=== PATIENT | female | born 1975 | race Hispanic/Latino ===

== ENCOUNTER 2017-07-20 20:05 | Emergency (ER) | payer BC, OTHER ==
[2017-07-20] MEDS ORDERED: IBUPROFEN 400 MG TABLET ONE (20:19)
[2017-07-20 20:37] LABS: APPEARANCE,URINE Clear (CLEAR); BILIRUBIN,URINE Negative (NEGATIVE); COLOR,URINE Yellow (YELLOW); GLUCOSE, URINE (UA) Negative (NEGATIVE); KETONES,URINE Negative (NEGATIVE); LEUKOCYTE ESTERASE ,URINE Negative (NEGATIVE); NITRATE,URINE Negative (NEGATIVE); OCCULT BLOOD,URINE Negative (NEGATIVE); PH,URINE 8.5 (5.0-8.0); PROTEIN,URINE Negative (NEGATIVE)
[2017-07-20 20:40] LABS: HCG,QUAL RESULT NEGATIVE (NEGATIVE)
[2017-07-20 20:50] LABS: RAPID GROUP A STREP NEGATIVE (NEGATIVE)
== END 2017-07-20 21:06 | disposition home or self-care (01) ==
LOC: EDH 20:05
DX: J09.X2 Influenza due to identified novel influenza A virus with other respiratory manifestations (principal)
CPT/HCPCS: 81003; 81025; 87804; 87880

== ENCOUNTER 2019-07-01 08:55 | Emergency (ER) | payer OTHER | END 2019-07-01 09:50 | disposition home or self-care (01) | LOC: EDH 08:55 | DX: R50.9 Fever, unspecified (principal); M79.10 Myalgia, unspecified site; I10 Essential (primary) hypertension ==

== ENCOUNTER → 2021-04-15 | Emergency (ER) | payer BC, OTHER ==
[~2021-04-15] VITALS: Ht 162.6 cm; Wt 104.3 kg
[~2021-04-15] MED LIST: 0.9%NACL 1000ML 1,000 ML IV ONE; DiphenhydrAMINE HCL 50 MG/ML VIAL IV ONE; KETOROLAC 30MG VIAL (30MG/ML) IV ONE; PROCHLORPERAZINE 10MG/2ML INJ IV ONE
[2021-04-15 20:15] VITALS: BP 120/61
== END | disposition home or self-care (01) ==
LOC: EDH 18:41
DX: G43.909 Migraine, unspecified, not intractable, without status migrainosus (principal); E86.0 Dehydration; R11.10 Vomiting, unspecified; E11.9 Type 2 diabetes mellitus without complications; E78.00 Pure hypercholesterolemia, unspecified; I10 Essential (primary) hypertension; Z79.1 Long term (current) use of non-steroidal anti-inflammatories (NSAID)
CPT/HCPCS: 96361; 96374; 96375; 99284; J0780; J1200; J1885; J7030

== ENCOUNTER 2022-06-09 22:55 | Emergency (ER) | payer BC ==
[~2022-06-09] VITALS: Ht 162.6 cm; Wt 112.2 kg
[2022-06-09 22:59] VITALS: BP 137/80
[2022-06-09] MEDS ORDERED: KETOROLAC 30MG VIAL (30MG/ML) IM ONE (23:30)
== END 2022-06-09 23:33 | disposition home or self-care (01) ==
LOC: EDH 22:55
DX: S02.5XXA Fracture of tooth (traumatic), initial encounter for closed fracture (principal); E11.9 Type 2 diabetes mellitus without complications; E78.00 Pure hypercholesterolemia, unspecified; I10 Essential (primary) hypertension; X58.XXXA Exposure to other specified factors, initial encounter; Y93.89 Activity, other specified; Y92.89 Other specified places as the place of occurrence of the external cause; Y99.8 Other external cause status
CPT/HCPCS: 99284; 96372; J1885

== ENCOUNTER 2022-08-22 15:58 | Emergency (ER) | payer BC ==
[~2022-08-22] VITALS: Ht 162.6 cm; Wt 113.9 kg
[2022-08-22] MEDS ORDERED: KETOROLAC 60 MG VIAL (30MG/ML) IM ONE (16:30)
[2022-08-22] MEDS ORDERED: ORPHENADRINE CITRATE 30 MG/ML ML IM ONE (16:30)
[2022-08-22] MEDS ORDERED: CYCL10TA16 PO (16:33)
[2022-08-22] MEDS ORDERED: OXYC-38 PO (16:33)
[2022-08-22] MEDS ORDERED: IBUP-2077 PO (16:33)
[2022-08-22 17:31] VITALS: BP 151/83
[2022-08-24] MEDS ORDERED: OXYC-38 PO (12:16)
== END 2022-08-22 17:33 | disposition home or self-care (01) ==
LOC: EDH 15:58
DX: M54.42 Lumbago with sciatica, left side (principal); E11.9 Type 2 diabetes mellitus without complications; E78.00 Pure hypercholesterolemia, unspecified; I10 Essential (primary) hypertension; Z79.899 Other long term (current) drug therapy
CPT/HCPCS: 99284; 96372 ×2; J1885

== ENCOUNTER 2022-09-21 10:54 | Emergency (ER) | payer BC ==
[~2022-09-21] VITALS: Ht 162.6 cm; Wt 115.2 kg
[~2022-09-21 10:54] MED LIST changes: -0.9%NACL 1000ML 1,000 ML IV ONE; +CYCL10TA16 PO; -DiphenhydrAMINE HCL 50 MG/ML VIAL IV ONE; +IBUP-2077 PO; -KETOROLAC 30MG VIAL (30MG/ML) IV ONE; +OXYC-38 PO; -PROCHLORPERAZINE 10MG/2ML INJ IV ONE
[2022-09-21 11:33] LABS: APPEARANCE,URINE TURBID (CLEAR); BILIRUBIN,URINE NEGATIVE (NEGATIVE); COLOR,URINE LIGHT-ORANGE (YELLOW); GLUCOSE, URINE (UA) NEGATIVE (NEGATIVE); KETONES,URINE NEGATIVE (NEGATIVE); LEUKOCYTE ESTERASE ,URINE 500 Leu/uL (NEGATIVE); NITRATE,URINE NEGATIVE (NEGATIVE); OCCULT BLOOD,URINE LARGE (NEGATIVE); PH,URINE 7.5 (5.0-8.0); PROTEIN,URINE 70 mg/dL (NEGATIVE); UROBILINOGEN,URINE 0.2 mg/dL (0.2-1.0)
[2022-09-21 11:34] LABS: HCG,QUALITATIVE URINE NEGATIVE (NEGATIVE)
[2022-09-21 11:45] LABS: ALBUMIN 3.2 g/dL (3.5-5.0); CREATININE 0.6 mg/dL (0.5-1.5); POTASSIUM 4.2 mmol/L (3.5-5.1); TOTAL PROTEIN, SERUM 6.7 g/dL (6.0-8.3)
[2022-09-21 11:49] LABS: BACTERIA,URINE FEW /HPF (None Seen); MUCUS,URINE RARE LPF (None Seen); RBC,URINE 51-100 /HPF (0-1); SQUAMOUS EPITHELIAL CELL,UR FEW /HPF (0-2); WBC,URINE TNTC /HPF (0-1); YEAST,URINE BUDDING MOD /HPF (None Seen)
[2022-09-21 11:55] LABS: BASOPHILS % (AUTO) 0.6 % (0.0-5.0); EOSINOPHILS % (AUTO) 3.7 % (0.0-8.0); HEMATOCRIT 41.7 % (36-48); LYMPHOCYTES % (AUTO) 15.2 % (21.0-51.0); MEAN CORPUSCULAR HEMOGLOBIN 32.1 pg (27.0-33.0); MEAN CORPUSCULAR HGB CONC 34.3 g/dL (32.0-36.0); MEAN CORPUSCULAR VOLUME 93.5 fL (79-99); MONOCYTES % (AUTO) 5.3 % (3.0-13.0); NEUTROPHILS % (AUTO) 74.8 % (40.0-77.0); PLATELET COUNT (AUTO) 147 K/uL (130-400); RED BLOOD CELL COUNT(AUTO) 4.46 MIL/uL (4.00-5.50); RED CELL DISTRIBUTION WIDTH 12.4 % (11.0-15.5); WHITE BLOOD COUNT (AUTO) 11.6 K/uL (4.8-10.8)
[2022-09-21] MEDS ORDERED: SULF1TAB42 PO (13:28)
[2022-09-21] MEDS ORDERED: CEFTRIAXONE 1G VIAL IM ONE (13:30)
[2022-09-21 15:02] VITALS: BP 138/80
[2022-09-21] MEDS ORDERED: LIDOCAINE HCL-MPF 2% 5ML VIAL ONE (15:09)
== END 2022-09-21 15:06 | disposition home or self-care (01) ==
LOC: EDH 10:54
DX: N39.0 Urinary tract infection, site not specified (principal); I10 Essential (primary) hypertension; E78.00 Pure hypercholesterolemia, unspecified; E11.9 Type 2 diabetes mellitus without complications
CPT/HCPCS: 99283; 80053; 85025; 87077; 87088; 87186; 81001; 81025; 36415; 96372; J0696; J3490

== ENCOUNTER 2022-12-21 12:46 | Emergency (ER) | payer BC ==
[~2022-12-21] VITALS: Ht 162.6 cm; Wt 119.3 kg
[~2022-12-21 12:46] MED LIST changes: +SULF1TAB42 PO
[2022-12-21 13:37] LABS: BASOPHILS # (AUTO) 0.09 K/uL (0.00-0.20); EOSINOPHILS # (AUTO) 0.41 K/uL (0.00-0.70); EOSINOPHILS % (AUTO) 4.4 % (0.0-8.0); HEMATOCRIT 41.9 % (36-48); IMMATURE GRANULOCYTE ABSOLUTE 0.07 K/uL (0-1); LYMPHOCYTES # (AUTO) 2.6 K/uL (1.0-4.8); MEAN CORPUSCULAR HEMOGLOBIN 32.7 pg (27.0-33.0); MEAN CORPUSCULAR HGB CONC 34.6 g/dL (32.0-36.0); MEAN CORPUSCULAR VOLUME 94.4 fL (79-99); MONOCYTES # (AUTO) 0.4 K/uL (0.1-1.0); MONOCYTES % (AUTO) 4.2 % (3.0-13.0); NEUTROPHILS # (AUTO) 5.8 K/uL (1.8-7.7); NEUTROPHILS % (AUTO) 61.7 % (40.0-77.0); PLATELET COUNT (AUTO) 160 K/uL (130-400); RED BLOOD CELL COUNT(AUTO) 4.44 MIL/uL (4.00-5.50); RED CELL DISTRIBUTION WIDTH 12.9 % (11.0-15.5); WHITE BLOOD COUNT (AUTO) 9.4 K/uL (4.8-10.8)
[2022-12-21 13:41] LABS: APPEARANCE,URINE CLEAR (CLEAR); BILIRUBIN,URINE NEGATIVE (NEGATIVE); COLOR,URINE YELLOW (YELLOW); GLUCOSE, URINE (UA) 50 mg/dL (NEGATIVE); KETONES,URINE NEGATIVE (NEGATIVE); LEUKOCYTE ESTERASE ,URINE NEGATIVE Leu/uL (NEGATIVE); NITRATE,URINE NEGATIVE (NEGATIVE); OCCULT BLOOD,URINE NEGATIVE (NEGATIVE); PH,URINE 5.5 (5.0-8.0); PROTEIN,URINE NEGATIVE (NEGATIVE); UROBILINOGEN,URINE 0.2 mg/dL (0.2-1.0)
[2022-12-21 13:43] LABS: HCG,QUALITATIVE URINE NEGATIVE (NEGATIVE)
[2022-12-21 13:44] LABS: CREATININE 0.6 mg/dL (0.5-1.5); POTASSIUM 3.7 mmol/L (3.5-5.1)
[2022-12-21 13:45] LABS: ADD UA MICROSCOPIC YES
[2022-12-21 13:46] LABS: BACTERIA,URINE FEW /HPF (None Seen); MUCUS,URINE RARE LPF (None Seen); RBC,URINE 0-1 /HPF (0-1); SQUAMOUS EPITHELIAL CELL,UR FEW /HPF (0-2); WBC,URINE 0-1 /HPF (0-1)
[2022-12-21 14:00] LABS: ALBUMIN 2.6 g/dL (3.5-5.0); BILIRUBIN,TOTAL 0.3 mg/dL (0.2-1.0); MAGNESIUM 1.6 mg/dL (1.80-2.40); TOTAL PROTEIN, SERUM 5.9 g/dL (6.0-8.3)
[2022-12-21 18:45] VITALS: BP 142/82; PULSE 72; RESP 18; O2SAT 100
[2022-12-21] MEDS ORDERED: MAGNESIUM OXIDE 400 MG TABLET PO ONE (19:00)
== END 2022-12-21 18:46 | disposition home or self-care (01) ==
LOC: EDH 12:46
DX: R20.0 Anesthesia of skin (principal); E11.65 Type 2 diabetes mellitus with hyperglycemia; I10 Essential (primary) hypertension; E78.00 Pure hypercholesterolemia, unspecified; Z79.899 Other long term (current) drug therapy
CPT/HCPCS: 36415; 70450; 71045; 80053; 81001; 81025; 82550; 83735; 83874; 84484; 85025; 93005

== ENCOUNTER 2023-09-10 20:43 | Emergency (ER) | payer OTHER ==
[~2023-09-10] VITALS: Ht 162.6 cm; Wt 112.0 kg
[2023-09-10 21:46] LABS: BASOPHILS # (AUTO) 0.06 K/uL (0.00-0.20); BASOPHILS % (AUTO) 0.7 % (0.0-5.0); EOSINOPHILS # (AUTO) 0.28 K/uL (0.00-0.70); EOSINOPHILS % (AUTO) 3.4 % (0.0-8.0); HEMATOCRIT 43.6 % (36-48); IMMATURE GRANULOCYTE ABSOLUTE 0.02 K/uL (0-1); LYMPHOCYTES # (AUTO) 2.7 K/uL (1.0-4.8); LYMPHOCYTES % (AUTO) 32.1 % (21.0-51.0); MEAN CORPUSCULAR HEMOGLOBIN 32.9 pg (27.0-33.0); MEAN CORPUSCULAR HGB CONC 35.8 g/dL (32.0-36.0); MONOCYTES # (AUTO) 0.5 K/uL (0.1-1.0); MONOCYTES % (AUTO) 5.5 % (3.0-13.0); NEUTROPHILS # (AUTO) 4.8 K/uL (1.8-7.7); NEUTROPHILS % (AUTO) 58.1 % (40.0-77.0); PLATELET COUNT (AUTO) 118 K/uL (130-400); RED BLOOD CELL COUNT(AUTO) 4.74 MIL/uL (4.00-5.50); RED CELL DISTRIBUTION WIDTH 12.6 % (11.0-15.5); WHITE BLOOD COUNT (AUTO) 8.3 K/uL (4.8-10.8)
[2023-09-10 21:59] LABS: CREATININE 0.9 mg/dL (0.5-1.0); POTASSIUM 4.2 mmol/L (3.5-5.1)
[2023-09-10 22:07] LABS: APPEARANCE,URINE CLEAR (CLEAR); BILIRUBIN,URINE NEGATIVE (NEGATIVE); COLOR,URINE COLORLESS (YELLOW); GLUCOSE, URINE (UA) >=1000 mg/dL (NEGATIVE); KETONES,URINE 20 mg/dL (NEGATIVE); LEUKOCYTE ESTERASE ,URINE 500 Leu/uL (NEGATIVE); NITRATE,URINE NEGATIVE (NEGATIVE); OCCULT BLOOD,URINE NEGATIVE (NEGATIVE); PH,URINE 5.5 (5.0-8.0); PROTEIN,URINE NEGATIVE (NEGATIVE); UROBILINOGEN,URINE 0.2 mg/dL (0.2-1.0)
[2023-09-10 22:09] LABS: ADD UA MICROSCOPIC YES; HCG,QUALITATIVE URINE NEGATIVE (NEGATIVE)
[2023-09-10 22:11] LABS: BACTERIA,URINE RARE /HPF (None Seen); MUCUS,URINE RARE LPF (None Seen); SQUAMOUS EPITHELIAL CELL,UR RARE /HPF (0-2); WBC,URINE 26-50 /HPF (0-1)
[2023-09-10] MEDS: 0.9%NACL 1000ML 1,000 ML IV ONE (22:18)
[2023-09-10] MEDS: INSULIN HUMULIN R 100 UNIT/ML 3ML IV ONE (22:25)
[2023-09-10 23:36] VITALS: BP 134/88; PULSE 80; RESP 18; O2SAT 99
[2023-09-10] MEDS ORDERED: GLIP5TAB15 PO (23:45)
[2023-09-10] MEDS ORDERED: METF-446 PO (23:45)
== END 2023-09-10 23:56 | disposition home or self-care (01) ==
LOC: EDH 20:43
DX: E11.65 Type 2 diabetes mellitus with hyperglycemia (principal); I10 Essential (primary) hypertension; E78.00 Pure hypercholesterolemia, unspecified; Z79.84 Long term (current) use of oral hypoglycemic drugs; Z91.148 Patient's other noncompliance with medication regimen for other reason
CPT/HCPCS: 99283; 96374; 83036; 80048; 85025; 87088; 82948 ×3; 82010; 81001; 81025; 36415; J1815 ×2

== ENCOUNTER 2024-01-30 05:14 | Emergency (ER) | payer BC ==
[~2024-01-30] VITALS: Ht 160 cm; Wt 113.9 kg
[~2024-01-30 05:14] MED LIST changes: +GLIP5TAB15 PO; +METF-446 PO
[2024-01-30 05:55] LABS: HEMATOCRIT 38.5 % (36-48); MEAN CORPUSCULAR HEMOGLOBIN 32.7 pg (27.0-33.0); MEAN CORPUSCULAR HGB CONC 34.5 g/dL (32.0-36.0); MEAN CORPUSCULAR VOLUME 94.6 fL (79-99); RED BLOOD CELL COUNT(AUTO) 4.07 MIL/uL (4.00-5.50); RED CELL DISTRIBUTION WIDTH 12.3 % (11.0-15.5); WHITE BLOOD COUNT (AUTO) 7.6 K/uL (4.8-10.8)
[2024-01-30 06:04] LABS: APPEARANCE,URINE CLOUDY (CLEAR); BILIRUBIN,URINE NEGATIVE (NEGATIVE); COLOR,URINE YELLOW (YELLOW); GLUCOSE, URINE (UA) NEGATIVE (NEGATIVE); KETONES,URINE NEGATIVE (NEGATIVE); LEUKOCYTE ESTERASE ,URINE 500 Leu/uL (NEGATIVE); NITRATE,URINE NEGATIVE (NEGATIVE); OCCULT BLOOD,URINE MODERATE (NEGATIVE); PH,URINE 7.5 (5.0-8.0); PROTEIN,URINE 30 mg/dL (NEGATIVE); UROBILINOGEN,URINE 0.2 mg/dL (0.2-1.0)
[2024-01-30 06:07] LABS: CREATININE 0.5 mg/dL (0.5-1.0); POTASSIUM 3.8 mmol/L (3.5-5.1)
[2024-01-30 06:12] LABS: ADD UA MICROSCOPIC YES
[2024-01-30 06:15] LABS: MUCUS,URINE RARE LPF (None Seen); SQUAMOUS EPITHELIAL CELL,UR RARE /HPF (0-2); WBC CLUMP MANY /HPF (0-1); WBC,URINE TNTC /HPF (0-1)
[2024-01-30] MEDS: 0.9%NACL 1000ML 1,000 ML IV ONE (06:21)
[2024-01-30] MEDS: morPHINE 2 MG SYG IVP ONE (06:21)
[2024-01-30] MEDS ORDERED: PHEN-776 PO (06:54)
[2024-01-30] MEDS ORDERED: NITR100C4 PO (06:54)
[2024-01-30] MEDS: cefTRIAXone 1G VIAL IVPB ONE (07:30)
[2024-01-30 08:09] VITALS: BP 144/81; PULSE 61; RESP 19; TEMP 98.2; O2SAT 97
== END 2024-01-30 08:17 | disposition home or self-care (01) ==
LOC: EDH 05:14
DX: N30.00 Acute cystitis without hematuria (principal); D69.6 Thrombocytopenia, unspecified; E11.65 Type 2 diabetes mellitus with hyperglycemia; E78.00 Pure hypercholesterolemia, unspecified; I10 Essential (primary) hypertension; Z79.84 Long term (current) use of oral hypoglycemic drugs
CPT/HCPCS: 99284; 96365; 96361; 96375; 80048; 85027; 87086 ×2; 87186; 81001; 81025; 36415; J2270; J7030; J0696

== ENCOUNTER 2024-04-28 16:40 | Emergency (ER) | payer BC ==
[~2024-04-28] VITALS: Ht 162.6 cm; Wt 111.1 kg
[~2024-04-28 16:40] MED LIST changes: +NITR100C4 PO; +PHEN-776 PO
[2024-04-28 17:39] LABS: BASOPHILS # (AUTO) 0.05 K/uL (0.00-0.20); BASOPHILS % (AUTO) 0.7 % (0.0-5.0); EOSINOPHILS # (AUTO) 0.28 K/uL (0.00-0.70); HEMATOCRIT 41.4 % (36-48); IMMATURE GRANULOCYTE ABSOLUTE 0.02 K/uL (0-1); LYMPHOCYTES # (AUTO) 2.5 K/uL (1.0-4.8); LYMPHOCYTES % (AUTO) 35.9 % (21.0-51.0); MEAN CORPUSCULAR HEMOGLOBIN 32.7 pg (27.0-33.0); MEAN CORPUSCULAR HGB CONC 34.8 g/dL (32.0-36.0); MEAN CORPUSCULAR VOLUME 93.9 fL (79-99); MONOCYTES # (AUTO) 0.5 K/uL (0.1-1.0); MONOCYTES % (AUTO) 7.1 % (3.0-13.0); NEUTROPHILS # (AUTO) 3.6 K/uL (1.8-7.7); PLATELET COUNT (AUTO) 147 K/uL (130-400); RED BLOOD CELL COUNT(AUTO) 4.41 MIL/uL (4.00-5.50); RED CELL DISTRIBUTION WIDTH 12.5 % (11.0-15.5)
[2024-04-28 17:48] LABS: CREATININE 0.6 mg/dL (0.5-1.0); POTASSIUM 4.2 mmol/L (3.5-5.1)
[2024-04-28 18:18] LABS: B-TYPE NATRIURETIC PEPTIDE < 5 pg/mL (0-100)
--- NOTE | 2024-04-28 18:30 | HMCIMG ---
CHEST 1VW HISTORY: Chest pain COMPARISON: 12/21/2022 FINDINGS: A frontal projection of the chest was obtained. No acute pulmonary infiltrates is seen. The heart is borderline enlarged. Prominent interstitial markings are seen. Degenerative changes are seen. No evidence of aortic calcification is seen. IMPRESSION: 1. No acute pulmonary infiltrate is seen.
--- NOTE | 2024-04-28 18:34 | ERN ---
General Chief Complaint: Chest Pain Stated Complaint: CHEST PRESSURE Time Seen by MD: 17:18 Time Seen by Midlevel: 17:18 Source: patient History of Present Illness Initial Comments Patient is a 49-year-old female presenting to the emergency department with chest pressure that has been ongoing for the last couple of days. Patient reports similar episodes in the past but is usually diagnosed as anxiety. She does report having history of hypertension but does not take her medication consistently as she should. Denies any other concerns at this time. Allergies: Coded Allergies: No Known Allergies (Unverified Allergy, Unknown, 04/15/21) Home Meds Active Scripts Phenazopyridine HCl (Pyridium) 200 Mg Tablet, 200 MG PO TID for painful urination, #10 TAB 0 Refills Prov:MISSY LOPES MD 01/30/24 Nitrofurantoin Monohyd/M-Cryst (Macrobid 100 mg Capsule) 100 Mg Capsule, 1 CAP PO BID for 7 Days, #14 CAP 0 Refills Prov:MISSY LPOES MD 01/30/24 Glipizide (Glipizide) 5 Mg Tablet, 5 MG PO DAILY, #30 TAB Prov:NARENDRA MEDRANO DO 09/10/23 Metformin HCl (Metformin HCl) 1,000 Mg Tablet, 1000 MG PO BID, #60 TAB Prov:NARENDRA MEDRANO DO 09/10/23 Sulfamethoxazole/Trimethoprim (Bactrim Ds Tablet) 1 Each Tablet, 1 TAB PO BID for 7 Days, #14 TAB Prov:TIA RODRIGUEZ NP 09/21/22 Oxycodone HCl/Acetaminophen (Percocet 5-325 mg Tablet) 1 Each Tablet, 1 EACH PO Q6H for pain, #16 TAB 0 Refills Prov:MELI MENG MD 08/24/22 Ibuprofen (Ibuprofen 800 mg Tab) 800 Mg Tab, 800 MG PO Q8H for 10 Days, #30 TAB 0 Refills Prov:MELI MENG MD 08/22/22 Cyclobenzaprine HCl (Flexeril) 10 Mg Tab, 10 MG PO TID for muscle stiffness, #14 TAB 0 Refills Prov:MELI MENG MD 08/22/22 Past Medical History Past Medical History: Diabetes-Type II, Hypertension Medical History Other: NON COMPLIANT Past Surgical History: None ROS Dictation CONSTITUTIONAL: Negative except for HPI HEAD/FACE: Negative except for HPI EENT: Negative except for HPI RESPIRATORY: Negative except for HPI GASTROINTESTINAL/ABDOMINAL: Negative except for HPI GENITOURINARY: Negative except for HPI MUSCULOSKELETAL: Negative except for HPI INTEGUMENTARY: Negative except for HPI NEUROLOGICAL/PSYCH: Negative except for HPI HEMATOLOGIC/LYMPHATIC: Negative except for HPI All Systems Negative, Except as noted above. 13 point review of systems assessed and all negative except for above. Physical Exam Physical Exam Dictation Vital Signs reviewed General Appearance: Alert, oriented x 3, no acute distress, well developed, nourished. Head and Face: non-traumatic. Eyes: PERRL, pink conjunctivas, eyelid no trauma, anterior chamber with arcus senilis. Ears: Pinnas intact and no signs of trauma or erythema ear canals clear and no discharge TM no erythema Nose: No discharge, no bleeding. Oropharynx: Mouth normal, tongue pink, pharynx clear,no erythema, tonsils no exudates, no abscesses noted, mucous membrane moist Neck: Supple, non-tender, no thyromegaly, no masses, no JVD, no bruits Breast:Deferred Chest:No tenderness, no crepitus, no paradoxical movement, no retractions Lungs:Clear, well-ventilated, symmetric, no rales, no wheezing, no rhonchi, no stridor, good breath sounds bilaterally Heart: Regular rate, regular rhythm, no murmur, no gallops Vascular: no peripheral edema, Abdomen: Soft, positive bowel sounds, nondistended, no guarding, nontender, no rebound, no masses no hepatomegaly, no splenomegaly, no Villegas's sign, no hernias. Rectal: Deferred Genital: Deferred Neurological: Normal speech, motor function intact, sensory function intact Musculoskeletal: Neck nontender, full range of motion, back nontender, full range of motion, Extremities: nontender, full range of motion Skin: Color pink, dry, no turgor, no rash, no lacerations, no abrasions, no contusions. Lymphatic: Deferred Results Laboratory and Microbiology Lab and Micro Result Laboratory Tests Test 04/28/24 17:31 04/28/24 17:51 White Blood Count 7.0 K/uL (4.8-10.8) Red Blood Count 4.41 MIL/uL (4.00-5.50) Hemoglobin 14.4 g/dL (12.0-16.0) Hematocrit 41.4 % (36-48) Mean Corpuscular Volume 93.9 fL (79-99) Mean Corpuscular Hemoglobin 32.7 pg (27.0-33.0) Mean Corpuscular Hemoglobin Concent 34.8 g/dL (32.0-36.0) Red Cell Distribution Width 12.5 % (11.0-15.5) Platelet Count 147 K/uL (130-400) Mean Platelet Volume 11.7 fL (7.5-10.5) H Immature Granulocyte % (Auto) 0.3 % (0-1) Neutrophils (%) (Auto) 52.0 % (40.0-77.0) Lymphocytes (%) (Auto) 35.9 % (21.0-51.0) Monocytes (%) (Auto) 7.1 % (3.0-13.0) Eosinophils (%) (Auto) 4.0 % (0.0-8.0) Basophils (%) (Auto) 0.7 % (0.0-5.0) Neutrophils # (Auto) 3.6 K/uL (1.8-7.7) Lymphocytes # (Auto) 2.5 K/uL (1.0-4.8) Monocytes # (Auto) 0.5 K/uL (0.1-1.0) Eosinophils # (Auto) 0.28 K/uL (0.00-0.70) Basophils # (Auto) 0.05 K/uL (0.00-0.20) Absolute Immature Granulocyte (auto 0.02 K/uL (0-1) Nucleated Red Blood Cells 0.0 % (0.0-0.19) Sodium Level 142 mmol/L (136-145) Potassium Level 4.2 mmol/L (3.5-5.1) Chloride Level 106 mmol/L (101-111) Carbon Dioxide Level 31 mmol/L (21-32) Blood Urea Nitrogen 12 mg/dL (7-18) Creatinine 0.6 mg/dL (0.5-1.0) Glomerular Filtration Rate Calc 110 mL/min (>90) Random Glucose 123 mg/dL (70-105) H Total Calcium 9.3 mg/dL (8.5-10.1) Total Creatine Kinase 109 U/L (21-232) # Troponin I High Sensitivity < 4 ng/L (4-50) L B-Type Natriuretic Peptide < 5 pg/mL (0-100) Troponin I < 0.05 ng/mL (0.00-0.05) Labs Reviewed?: Yes MDM MDM: Differential diagnosis: ACS, anxiety, pleurisy, pneumonia, pulmonary edema There are no social concerns with this patient. Prescription drug management Prescriptions will include: None Medical management and examination interpretation discussions were had by me with other qualified healthcare professionals as indicated for the patient's care. ED Course Orders Procedure Category Date Status Time Vital Signs Per CPOE 04/28/24 Transmitted Routine 17:05 B-Type Natriuretic LAB 04/28/24 Complete Peptide 17:05 Chest 1vw RAD 04/28/24 Resulted 17:05 12 Lead Ekg Tracing- EKG 04/28/24 Resulted Technical 17:05 Oxygen By Nc/Pulse Ox CPOE 04/28/24 Transmitted 17:05 Maintain Iv CPOE 04/28/24 Transmitted 17:05 Iv Insertion CPOE 04/28/24 Transmitted 17:05 Cardiac Monitoring CPOE 04/28/24 Transmitted 17:05 Pulse Oximetry With CPOE 04/28/24 Transmitted Vs And Prn 17:05 Cbc With Differential LAB 04/28/24 Complete 17:05 Activity: Br W/Brp CPOE 04/28/24 Transmitted With Assist 17:05 Creatine Kinase, Total LAB 04/28/24 Complete 17:05 Troponin Poc Order LAB 04/28/24 Complete Only 17:05 Bedside Troponin-I LAB.ER 04/28/24 Complete (Poc) 17:05 Basic Metabolic Panel LAB 04/28/24 Complete 17:05 Troponin I High LAB 04/28/24 Complete Sensitivity 17:19 Vital Signs Date Time Temp Pulse Resp B/P (MAP) Pulse Ox O2 Delivery O2 Flow Rate FiO2 04/28/24 18:43 98.1 75 15 145/90 98 Room Air* 0 21 04/28/24 16:57 97.9 75 20 148/95 99 Room Air 0 [facility] [address] [place] [id number] IMAGING REPORT Signed PATIENT: CELENA VILLASENOR MR#: [id number] : 1975 SEX: F AGE: 49 LOCATION: [facility]H ORDER 05 STATUS: [facility] ER REPORT#: [id number] SERVICE 04 REASON: CHEST PAIN ORDERING PHYSICIAN: TERRY DILLARD MD PROCEDURE: CXR1VW - CHEST 1VW CHEST 1VW HISTORY: Chest pain COMPARISON: 12/21/2022 FINDINGS: A frontal projection of the chest was obtained. No acute pulmonary infiltrates is seen. The heart is borderline enlarged. Prominent interstitial markings are seen. Degenerative changes are seen. No evidence of aortic calcification is seen. IMPRESSION: 1. No acute pulmonary infiltrate is seen. DICTATED BY: CECILIA CAMERON MD DATE: 04/28/241826 ELECTRONICALLY SIGNED BY: CECILIA CAMERON MD DATE: 04/28/241829 HEART Score Response (Comments) Value History: Low suspicion (0) 0 EKG: Normal 0 Age: 45-65yrs (+1) 1 Risk Factors: 1-2 risk factors (+1) 1 Initial Troponin: Normal limit (0) 0 HEART Score Risk: Low Risk for MACE (1-3) Total 2 DX & DISP Disposition: Discharge Departure Impression: Primary Impression: Non-cardiac chest pain Condition: Stable Additional Instructions: Your blood work today is unremarkable. Your cardiac enzymes are negative. Your EKG does not show any evidence of a heart attack. Your chest x-ray does not show any evidence of pneumonia or any other acute abnormality. Follow up with your primary care doctor in 2-3 days for repeat evaluation. Return to the ER for any new or worsening symptoms. Referrals: NOEMI RODRIGUEZ (PCP) Time of Disposition: 18:36 I have reviewed the case, and I agree with, Diagnosis and Plan I performed the substantive portion of the visit. I have reviewed and personally made and approve the management plan that is documented in the note by myself or the RACHEL. I acknowledge for responsibility for the patient's management plan. ANDREIA ZAPATA Apr 28, 2024 18:34
[2024-04-28 18:43] VITALS: BP 145/90; PULSE 75; RESP 15; TEMP 98.1; O2SAT 98
--- NOTE | 2024-04-28 18:56 | NUR ---
PT DC 1858 HOWEVER REGISTRATION PROCESS WILL NOT ALLOW TO DEPART PT
--- NOTE | 2024-04-29 07:02 | EKG ---
[facility] Test Date: 2024-04-28 Test Time: 17:01:04 Pat Name: CELENA VILLASENOR Department: [facility] Room: Gender: F Layer Out Plate Glass: [facility] : 1975 Requested By: TERRY DILLARD Order Number: [id number] Reading MD: Gin Rodriguez Measurements Intervals [place] Rate: 71 P: 45 [place]: 166 QRS: -39 QRSD: 100 T: 27 QT: 420 QTc: 456 Interpretive Statements Sinus rhythm Probable left atrial enlargement Incomplete RBBB and LAFB Compared to ECG 12/21/2022 13:15:30 Incomplete right bundle-branch block now present Right bundle-branch block now present Myocardial infarct finding no longer present Electronically Signed On 04-29-2024 08:17:31 CITY MAINTENANCE MANAGER by Gin Rodriguez Please click the below link to view image of tracing.
== END 2024-04-28 18:51 | disposition home or self-care (01) ==
LOC: EDH 16:40
DX: R07.89 Other chest pain (principal); E11.9 Type 2 diabetes mellitus without complications; I10 Essential (primary) hypertension; Z79.84 Long term (current) use of oral hypoglycemic drugs; Z20.822 Contact with and (suspected) exposure to COVID-19
CPT/HCPCS: 36415; 71045; 80048; 82550; 83880; 84484; 85025; 93005; 99284; 99285

== ENCOUNTER 2024-06-06 17:01 | Emergency (ER) | payer BC ==
[~2024-06-06] VITALS: Ht 162.6 cm; Wt 113.4 kg
--- NOTE | 2024-06-06 17:14 | ERN ---
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 SHE ALSO STATES AT THAT TIME SHE HAD A MILD ANTERIOR CHEST PAIN THAT LASTED ONLY A MINUTE OR TWO AND THEN DISAPPEARED. NO FEVER NO CHILLS. SHE STATES SHE HAD A [employer] FISH SANDWICH AT 12:00 O'CLOCK AND IT DID NOT AFFECT HER. Allergies: Coded Allergies: No Known Allergies (Unverified Allergy, Unknown, 04/15/21) Home Meds Active Scripts Phenazopyridine HCl (Pyridium) 200 Mg Tablet, 200 MG PO TID for painful urination, #10 TAB 0 Refills Prov:MISSY LOPES MD 01/30/24 Nitrofurantoin Monohyd/M-Cryst (Macrobid 100 mg Capsule) 100 Mg Capsule, 1 CAP PO BID for 7 Days, #14 CAP 0 Refills Prov:MISSY LOPES MD 01/30/24 Glipizide (Glipizide) 5 Mg Tablet, 5 MG PO DAILY, #30 TAB Prov:NARENDRA MEDRANO DO 09/10/23 Metformin HCl (Metformin HCl) 1,000 Mg Tablet, 1000 MG PO BID, #60 TAB Prov:NARENDRA MEDRANO DO 09/10/23 Sulfamethoxazole/Trimethoprim (Bactrim Ds Tablet) 1 Each Tablet, 1 TAB PO BID for 7 Days, #14 TAB Prov:TIA RODRIGUEZ NP 09/21/22 Oxycodone HCl/Acetaminophen (Percocet 5-325 mg Tablet) 1 Each Tablet, 1 EACH PO Q6H for pain, #16 TAB 0 Refills Prov:MELI MENG MD 08/24/22 Ibuprofen (Ibuprofen 800 mg Tab) 800 Mg Tab, 800 MG PO Q8H for 10 Days, #30 TAB 0 Refills Prov:MELI MENG MD 08/22/22 Cyclobenzaprine HCl (Flexeril) 10 Mg Tab, 10 MG PO TID for muscle stiffness, #14 TAB 0 Refills Prov:MELI MENG MD 08/22/22 Past Medical History Past Medical History: Diabetes-Type II, Hypertension Additional Past Medical Hx: NON COMPLIANT Surgical History: None History: Not Applicable RN Note Reviewed/Agreed w/PFSH: Yes Review of System Dictation CONSTITUTIONAL: NEGATIVE EXCEPT FOR HPI HEAD/FACE: NEGATIVE EXCEPT FOR HPI EENT: NEGATIVE EXCEPT FOR HPI RESPIRATORY: NEGATIVE EXCEPT FOR HPI RESOLVED ANTERIOR CHEST PAIN GASTROINTESTINAL/ABDOMINAL: NEGATIVE EXCEPT FOR HPI EPIGASTRIC PAIN THAT RADIATES TO LOWER SUPRAPUBIC AREA GENITOURINARY: NEGATIVE EXCEPT FOR HPI MUSCULOSKELETAL: NEGATIVE EXCEPT FOR HPI INTEGUMENTARY: NEGATIVE EXCEPT FOR HPI NEUROLOGICAL/PSYCH: NEGATIVE EXCEPT FOR HPI HEMATOLOGIC/LYMPHATIC: NEGATIVE EXCEPT FOR HPI ALL SYSTEMS NEGATIVE, EXCEPT NOTED ABOVE. 13 POINT REVIEW OF SYSTEMS ASSESSED AND ALL NEGATIVE EXCEPT FOR ABOVE. Initial Vital Sign VS Vital Signs Date Time Temp Pulse Resp B/P (MAP) Pulse Ox O2 Delivery O2 Flow Rate FiO2 06/06/24 17:02 97.5 70 16 140/87 100 Room Air Physical Exam Dictation VITAL SIGNS REVIEWED GENERAL APPEARANCE: ALERT, ORIENTED X 3, MILD ACUTE DISTRESS, WELL DEVELOPED, NOURISHED. OBESE HEAD AND FACE: NON-TRAUMATIC. EYES: PERRL, PINK CONJUNCTIVAS, EYELID NO TRAUMA, ANTERIOR CHAMBER WITH ARCUS SENILIS. EARS: PINNAS INTACT AND NO SIGNS OF TRAUMA OR ERYTHEMA EAR CANALS CLEAR AND NO DISCHARGE TM NO ERYTHEMA NOSE: NO DISCHARGE, NO BLEEDING. OROPHARYNX: MOUTH NORMAL, TONGUE PINK, PHARYNX CLEAR,NO ERYTHEMA, TONSILS NO EXUDATES, NO ABSCESSES NOTED, MUCOUS MEMBRANE MOIST NECK: SUPPLE, NON-TENDER, NO THYROMEGALY, NO MASSES, NO JVD, NO BRUITS BREAST:DEFERRED CHEST:NO TENDERNESS, NO CREPITUS, NO PARADOXICAL MOVEMENT, NO RETRACTIONS LUNGS:CLEAR, WELL-VENTILATED, SYMMETRIC, NO RALES, NO WHEEZING, NO RHONCHI, NO STRIDOR, GOOD BREATH SOUNDS BILATERALLY HEART: REGULAR RATE, REGULAR RHYTHM, NO MURMUR, NO GALLOPS VASCULAR: NO PERIPHERAL EDEMA, ABDOMEN: SOFT, POSITIVE BOWEL SOUNDS, NONDISTENDED, NO GUARDING, EPIGASTRIC TENDERNESS, NO REBOUND, NO MASSES NO HEPATOMEGALY, NO SPLENOMEGALY, NO SANDERS'S SIGN, NO HERNIAS. RECTAL: DEFERRED GENITAL: DEFERRED NEUROLOGICAL: NORMAL SPEECH, MOTOR FUNCTION INTACT, SENSORY FUNCTION INTACT MUSCULOSKELETAL: NECK NONTENDER, FULL RANGE OF MOTION, BACK NONTENDER, FULL RANGE OF MOTION, EXTREMITIES: NONTENDER, FULL RANGE OF MOTION SKIN: COLOR PINK, DRY, NO TURGOR, NO RASH, NO LACERATIONS, NO ABRASIONS, NO CONTUSIONS. LYMPHATIC: DEFERRED Results (Laboratory/Radiology) Laboratory/Radiology Laboratory Tests Test 06/06/24 17:46 White Blood Count 9.3 K/uL (4.8-10.8) Red Blood Count 4.01 MIL/uL (4.00-5.50) Hemoglobin 13.0 g/dL (12.0-16.0) Hematocrit 37.7 % (36-48) Mean Corpuscular Volume 94.0 fL (79-99) Mean Corpuscular Hemoglobin 32.4 pg (27.0-33.0) Mean Corpuscular Hemoglobin Concent 34.5 g/dL (32.0-36.0) Red Cell Distribution Width 13.0 % (11.0-15.5) Platelet Count 136 K/uL (130-400) Mean Platelet Volume 11.9 fL (7.5-10.5) H Immature Granulocyte % (Auto) 0.3 % (0-1) Neutrophils (%) (Auto) 81.1 % (40.0-77.0) H Lymphocytes (%) (Auto) 10.9 % (21.0-51.0) L Monocytes (%) (Auto) 4.0 % (3.0-13.0) Eosinophils (%) (Auto) 3.2 % (0.0-8.0) Basophils (%) (Auto) 0.5 % (0.0-5.0) Neutrophils # (Auto) 7.6 K/uL (1.8-7.7) Lymphocytes # (Auto) 1.0 K/uL (1.0-4.8) Monocytes # (Auto) 0.4 K/uL (0.1-1.0) Eosinophils # (Auto) 0.30 K/uL (0.00-0.70) Basophils # (Auto) 0.05 K/uL (0.00-0.20) Absolute Immature Granulocyte (auto 0.03 K/uL (0-1) Nucleated Red Blood Cells 0.0 % (0.0-0.19) Sodium Level 139 mmol/L (136-145) Potassium Level 3.7 mmol/L (3.5-5.1) Chloride Level 104 mmol/L (101-111) Carbon Dioxide Level 31 mmol/L (21-32) Blood Urea Nitrogen 7 mg/dL (7-18) Creatinine 0.6 mg/dL (0.5-1.0) Glomerular Filtration Rate Calc 110 mL/min (>90) Random Glucose 225 mg/dL (70-105) H Total Calcium 8.4 mg/dL (8.5-10.1) L Troponin I High Sensitivity 5 ng/L (4-50) Lipase 41 U/L (16-77) Labs Reviewed?: Yes EKG Comment: EKG sinus rhythm with occasional PACs/heart rate 69/left atrial enlargement ED Course ED Course Orders Procedure Category Date Status Time Cbc With Differential LAB 06/06/24 Complete 17:11 Troponin I High LAB 06/06/24 Complete Sensitivity 17:11 Urinalysis Profile LAB 06/06/24 Logged 17:11 12 Lead Ekg Tracing- EKG 06/06/24 Logged Technical 17:11 Lipase LAB 06/06/24 Complete 17:11 Basic Metabolic Panel LAB 06/06/24 Complete 17:11 Vital Signs Date Time Temp Pulse Resp B/P (MAP) Pulse Ox O2 Delivery O2 Flow Rate FiO2 06/06/24 17:02 97.5 70 16 140/87 100 Room Air 1930 no pain at this time. Patient discharged home with atypical chest pain gastritis. We will be sent home with the omeprazole and Carafate, told to see her primary care doctor Friday without fail. HEART Score Response (Comments) Value EKG: Repolarization changes 1 Age: 45-65yrs (+1) 1 Risk Factors: No known risk factors (0) 0 Initial Troponin: Normal limit (0) 0 Total 2 Medical Decision Making MDM MDM: Differential diagnosis: ACS/a IN/gastritis/electrolyte imbalance/dehydration/pancreatitis Rationale: Tests considered and ordered secondary to shared decision making include: EKG/labs Previous outside records reviewed: Old ER visits. Risk of complication and/or morbidity or mortality of patient management: None Medications-Per medication reconciliation Need for hospitalization: Patient does not meet criteria for hospitalization. None Need for emergency major/minor surgery: No There are no social concerns with this patient. Prescription drug management Carafate/omeprazole Prescriptions will include symptomatic care Patient's prior external medical records from other ER visits were reviewed by me as indicated. Prior testing and results from previous visits were reviewed. Prior tests were taken into account with medical decision making and resource utilization, independent historian/historians were used to obtain complete medical history. I independently interpreted the test that were performed, results were reviewed by me and considered findings on radiology if ordered. Medical management and examination interpretation discussions were had by me with other qualified healthcare professionals as indicated for the patient's care. DX & DISP Disposition: Discharge Departure Impression: Primary Impression: Acute gastritis Additional Impressions: Atypical chest pain, Uncontrolled diabetes mellitus Condition: Stable Scripts Sucralfate (Carafate) 1 Gram Tablet 1 GM PO ACHS for 7 Days, #28 TAB Prov: JOAQUIN FITZGERALD ORANGE GROWER 06/06/24 Omeprazole (Omeprazole) 40 Mg Capsule.dr 1 CAP PO DAILY for 30 Days, #30 CAP 0 Refills Prov: JOAQUIN FITZGERALD ORANGE GROWER 06/06/24 Additional Instructions: Follow-up with primary care provider in 1 to 2 days. Take medications as directed here in the emergency room. Okay to continue home medications unless otherwise discussed during your visit in the emergency room today. Return to your nearest emergency room if symptoms worsen or if there is no improvement. Call 911 if you need immediate assistance. Take Tylenol or Motrin [id number] as needed and if no contraindications are present. Increase oral hydration. A wound culture or urine culture was ordered here in the emergency room department please follow-up with primary care provider and advise them to get repeat ports from our facility. If you had any Liam wrap/splints that were applied here, please do not remove them until you see your primary care or specialty. Take Carafate and omeprazole as directed until gone. Suggest a bland diet with water for fluids only. No spicy foods, no soda pop, no ice tea, no coffee, no alcohol or citrus fruit juice until cleared by your doctor. See your primary care doctor for management of your diabetes. Referrals: NOEMI RODRIGUEZ (PCP) Time of Disposition: 19:33 I have reviewed the case, and I agree with, Diagnosis and Plan JOAQUIN FITZGERALD NP Jun 06, 2024 17:14
[2024-06-06 17:52] LABS: BASOPHILS # (AUTO) 0.05 K/uL (0.00-0.20); BASOPHILS % (AUTO) 0.5 % (0.0-5.0); EOSINOPHILS % (AUTO) 3.2 % (0.0-8.0); HEMATOCRIT 37.7 % (36-48); IMMATURE GRANULOCYTE ABSOLUTE 0.03 K/uL (0-1); LYMPHOCYTES % (AUTO) 10.9 % (21.0-51.0); MEAN CORPUSCULAR HEMOGLOBIN 32.4 pg (27.0-33.0); MEAN CORPUSCULAR HGB CONC 34.5 g/dL (32.0-36.0); MONOCYTES # (AUTO) 0.4 K/uL (0.1-1.0); NEUTROPHILS # (AUTO) 7.6 K/uL (1.8-7.7); NEUTROPHILS % (AUTO) 81.1 % (40.0-77.0); PLATELET COUNT (AUTO) 136 K/uL (130-400); RED BLOOD CELL COUNT(AUTO) 4.01 MIL/uL (4.00-5.50); WHITE BLOOD COUNT (AUTO) 9.3 K/uL (4.8-10.8)
[2024-06-06 17:59] LABS: CREATININE 0.6 mg/dL (0.5-1.0); POTASSIUM 3.7 mmol/L (3.5-5.1)
[2024-06-06] MEDS ORDERED: OMEP40CA21 PO (19:33)
[2024-06-06] MEDS ORDERED: SUCR1TAB28 PO (19:33)
[2024-06-06 19:49] LABS: ADD UA MICROSCOPIC YES; APPEARANCE,URINE CLEAR (CLEAR); BILIRUBIN,URINE NEGATIVE (NEGATIVE); COLOR,URINE LIGHT-YELLOW (YELLOW); GLUCOSE, URINE (UA) >=1000 mg/dL (NEGATIVE); KETONES,URINE NEGATIVE (NEGATIVE); LEUKOCYTE ESTERASE ,URINE NEGATIVE Leu/uL (NEGATIVE); NITRATE,URINE NEGATIVE (NEGATIVE); OCCULT BLOOD,URINE NEGATIVE (NEGATIVE); PH,URINE 6.5 (5.0-8.0); PROTEIN,URINE NEGATIVE (NEGATIVE)
[2024-06-06 19:50] LABS: BACTERIA,URINE RARE /HPF (None Seen); MUCUS,URINE RARE LPF (None Seen); SQUAMOUS EPITHELIAL CELL,UR RARE /HPF (0-2); WBC,URINE 0-1 /HPF (0-1)
[2024-06-06 20:08] VITALS: BP 147/77; PULSE 77; RESP 19; TEMP 98.3; O2SAT 99
--- NOTE | 2024-06-07 07:34 | EKG ---
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 : 1975 Requested By: JOAQUIN FITZGERALD Order Number: [id number] Reading MD: Claude Rivas Measurements Intervals [place] Rate: 69 P: 28 [place]: 153 QRS: -48 QRSD: 96 T: 58 QT: 421 QTc: 446 Interpretive Statements Sinus rhythm Atrial premature complexes Probable left atrial enlargement LAD, consider left anterior fascicular block Compared to ECG 04/28/2024 17:01:04 Atrial premature complex(es) now present Incomplete right bundle-branch block no longer present Right bundle-branch block no longer present Electronically Signed On 06-08-2024 06:55:45 PEDICURIST by Claude Rivas Please click the below link to view image of tracing.
== END 2024-06-06 20:31 | disposition home or self-care (01) ==
LOC: EDH 17:01
DX: K29.00 Acute gastritis without bleeding (principal); R07.89 Other chest pain; E11.65 Type 2 diabetes mellitus with hyperglycemia; I10 Essential (primary) hypertension; Z79.84 Long term (current) use of oral hypoglycemic drugs; Z79.899 Other long term (current) drug therapy
CPT/HCPCS: 36415; 80048; 81001; 83690; 84484; 85025; 93005; 99284

== ENCOUNTER 2024-12-11 06:33 | Emergency (ER) | payer BC ==
[~2024-12-11] VITALS: Ht 162.6 cm; Wt 113.4 kg
[~2024-12-11 06:33] MED LIST changes: +OMEP40CA21 PO; +SUCR1TAB28 PO
[2024-12-11 06:59] LABS: RAPID GROUP A STREP negative (NEGATIVE)
--- NOTE | 2024-12-11 07:13 | ERN ---
General Chief Complaint: Flu Symptoms Stated Complaint: SORE THROAT, BODYACHES, COUGH Time Seen by MD: 06:56 History of Present Illness Initial Comments 49F, hx obesity, DM, HTN, presents for 3 days of sore throat, body aches, productive cough, and congestion. Denies n/v/d. Subjective fevers and body aches at home. She has been taking OTC cold medications. 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 Allergies: Coded Allergies: No Known Allergies (Unverified Allergy, Unknown, 04/15/21) Home Meds Active Scripts Azithromycin (Azithromycin) 250 Mg Tablet, 1 TAB PO AD for 5 Days, #6 TAB 0 Refills 2 the first day followed by 1 for days 2-5 Prov:NARENDRA MEDRANO DO 12/11/24 Sucralfate (Carafate) 1 Gram Tablet, 1 GM PO ACHS for 7 Days, #28 TAB Prov:JOAQUIN FITZGERALD DIAMOND SANDER 06/06/24 Omeprazole (Omeprazole) 40 Mg Capsule.dr, 1 CAP PO DAILY for 30 Days, #30 CAP 0 Refills Prov:JOAQUIN FITZGERALD NP 06/06/24 Phenazopyridine HCl (Pyridium) 200 Mg Tablet, 200 MG PO TID for painful urination, #10 TAB 0 Refills Prov:MISSY LOPES MD 01/30/24 Nitrofurantoin Monohyd/M-Cryst (Macrobid 100 mg Capsule) 100 Mg Capsule, 1 CAP PO BID for 7 Days, #14 CAP 0 Refills Prov:MISSY LOPES MD 01/30/24 Glipizide (Glipizide) 5 Mg Tablet, 5 MG PO DAILY, #30 TAB Prov:NARENDRA MEDRANO DO 09/10/23 Metformin HCl (Metformin HCl) 1,000 Mg Tablet, 1000 MG PO BID, #60 TAB Prov:NARENDRA MEDRANO DO 09/10/23 Sulfamethoxazole/Trimethoprim (Bactrim Ds Tablet) 1 Each Tablet, 1 TAB PO BID for 7 Days, #14 TAB Prov:TIA RODRIGUEZ NP 09/21/22 Oxycodone HCl/Acetaminophen (Percocet 5-325 mg Tablet) 1 Each Tablet, 1 EACH PO Q6H for pain, #16 TAB 0 Refills Prov:MELI MENG MD 08/24/22 Ibuprofen (Ibuprofen 800 mg Tab) 800 Mg Tab, 800 MG PO Q8H for 10 Days, #30 TAB 0 Refills Prov:MELI MENG MD 08/22/22 Cyclobenzaprine HCl (Flexeril) 10 Mg Tab, 10 MG PO TID for muscle stiffness, #14 TAB 0 Refills Prov:MELI MENG MD 08/22/22 Past Medical History Past Medical History: Diabetes-Type II, Hypertension Medical History Other: NON COMPLIANT, ESBL Past Surgical History: None Female( History) History: Not Applicable ROS Dictation CONSTITUTIONAL: Body aches HEAD/FACE: No signs of trauma. EENT: Sore throat RESPIRATORY: Cough and congestion CARDIOVASCULAR: No chest pain, no edema, no palpitations, no syncope. GASTROINTESTINAL/ABDOMINAL: No abdominal pain, no constipation, no diarrhea, no nausea, no vomiting. GENITOURINARY: No abnormal discharge, no dysuria, no frequent urination, no hematuria. No complaints of pain in the genitals. MUSCULOSKELETAL: No back pain, no gout, no joint pain, no joint swelling, no muscle pain, no muscle stiffness, no neck pain. INTEGUMENTARY: No change in color, no change in hair/nails, no dryness, no lesion, no lumps, no rash. NEUROLOGICAL/PSYCH: No anxiety, not depressed, no emotional problem, no headache, no numbness, no pre-existing deficit, no history of seizures, no tremors, no weakness. HEMATOLOGIC/LYMPHATIC: Not anemic, no history of blood clots, no apparent bleeding, no bruising, glands not swollen. All Systems Negative, Except as Noted. Physical Exam Physical Exam Dictation VITAL SIGNS: Reviewed. GENERAL APPEARANCE: Alert, oriented x3, no acute distress, obese. HEAD AND FACE: Non-traumatic. EYES: PERRL, pink conjunctivas, eyelid no trauma, anterior chamber clear. EARS: Pinnas intact and no signs of trauma or erythema. Ear canals clear and no discharge. TMs no erythema. NOSE: No discharge, no bleeding. OROPHARYNX: Mouth normal, teeth no caries, tongue pink. Pharynx clear, no eryt janel. Tonsils no exudates, no abscesses noted. Mucous membrane moist. NECK: Supple, non-tender, no thyromegaly, no masses, no JVD, no bruits. BREAST: Deferred. CHEST: No tenderness, no crepitus, no paradoxical movement, no retractions. LUNGS: No wheezing mildly coarse lungs HEART: Regular rate, regular rhythm, no murmur, no gallops. VASCULAR: No peripheral edema. ABDOMEN: Soft, positive bowel sounds, nondistended, no guarding, nontender, no rebound, no masses no hepatomegaly, no splenomegaly, no Villegas's sign, no hernias. RECTAL: Deferred. GENITAL: Deferred. NEUROLOGICAL: Normal speech, gross motor function intact, gross sensory function intact. MUSCULOSKELETAL: Neck nontender, full range of motion, back nontender, full range of motion. EXTREMITIES: Nontender, full range of motion. SKIN: Color pink, dry, no turgor, no rash, no lacerations, no abrasions, no contusions. LYMPHATICS: Deferred. Results Laboratory and Microbiology Lab and Micro Result Laboratory Tests Test 12/11/24 06:40 12/11/24 07:45 SARS-CoV-2, RNA, NAAT NEGATIVE SARS CoV-2 Group A Streptococcus Rapid negative (NEGATIVE) Influenza Type A Antigen Negative For Type A Influenza Type B Antigen Negative For Type B MDM CC: sore throat, cough, congestion, subjective fevers x 3 days. Historian: patient Comorbidities: HTN, DM, obesity Limitations: none Ddx: viral URI, CAP, flu, COVID VSS Clinical exam course lungs CXR: clear of focal infiltrates per my independent interpretation FLu & COVID & Strep neg based on clinical presentation, fevers, productive cough, course breath sounds, will treat as CAP. DC w/ azithromycin, OTC meds, PCP f/u. ED Course Orders Procedure Category Date Status Time Covid Rna Naat LAB 12/11/24 Complete 06:39 Rapid (Group A Strep) LAB 12/11/24 Complete 06:39 Chest 1vw RAD 12/11/24 Taken 06:57 Influenza Type A & B, LAB 12/11/24 Complete Rapid 07:30 Vital Signs Date Time Temp Pulse Resp B/P (MAP) Pulse Ox O2 Delivery O2 Flow Rate FiO2 12/11/24 07:20 99.0 84 18 134/81 98 Room Air* 0 21 12/11/24 06:34 99.0 98 20 83/ 98 Room Air DX & DISP Disposition: Discharge Departure Impression: Primary Impression: CAP (community acquired pneumonia) Condition: Stable Scripts Azithromycin (Azithromycin) 250 Mg Tablet 1 TAB PO AD for 5 Days, #6 TAB 0 Refills 2 the first day followed by 1 for days 2-5 Prov: NARENDRA MEDRANO DO 12/11/24 Additional Instructions: Your symptoms are consistent with a community acquired pneumonia. Your x-ray is clear. Your lung sounds are course. Your oxygen level and vital signs are stable. The COVID swab is negative. I've prescribed the antibiotic azithromycin. Take as prescribed. You can use over the counter cough and cold medications as needed. Follow up with a primary doctor in 48 hours if your symptoms do not improve. Return to the ED as needed. Referrals: NOEMI RODRIGUEZ (PCP) NARENDRA MEDRANO DO Dec 11, 2024 07:13
[2024-12-11 07:20] VITALS: BP 134/81; PULSE 84; RESP 18; TEMP 98.9; O2SAT 98
[2024-12-11 07:23] LABS: SARS-CoV-2, RNA, NAAT NEGATIVE SARS CoV-2 (NEGATIVE)
[2024-12-11] MEDS ORDERED: AZIT250T9 PO (07:56)
[2024-12-11 08:15] LABS: INFLUENZA TYPE A Negative For Type A (NEGATIVE); INFLUENZA TYPE B Negative For Type B (NEGATIVE)
--- NOTE | 2024-12-11 09:03 | HMCIMG ---
EXAM: CR Chest,1 View. CLINICAL HISTORY: Chest x-ray dated 04/28/2024. COMPARISON: None provided. FINDINGS: LUNGS: There is no mass, infiltrate, or acute pulmonary abnormality. PLEURAL SPACES: No pleural effusion or pneumothorax. MEDIASTINUM: The cardiomediastinal silhouette appears enlarged BONES: No aggressive appearing osseous lesion seen. IMPRESSION: No acute pulmonary pathology is evident. Cardiomegaly. /[place]
== END 2024-12-11 08:08 | disposition home or self-care (01) ==
LOC: EDH 06:33
DX: J18.9 Pneumonia, unspecified organism (principal); E11.9 Type 2 diabetes mellitus without complications; E66.9 Obesity, unspecified; I11.9 Hypertensive heart disease without heart failure; Z20.822 Contact with and (suspected) exposure to COVID-19; Z79.84 Long term (current) use of oral hypoglycemic drugs; Z79.899 Other long term (current) drug therapy
CPT/HCPCS: 71045; 87635; 87804; 87880; 99283